=== PATIENT | male | born 1985 | race Caucasian/White ===

== ENCOUNTER 2024-06-27 07:51 | Emergency (ER) | payer OTHER ==
[~2024-06-27] VITALS: Ht 177.8 cm; Wt 77.7 kg
[2024-06-27 07:59] VITALS: BP 135/73; PULSE 93; RESP 16; TEMP 98.5; O2SAT 98
--- NOTE | 2024-06-27 08:17 | NUR ---
38 MALE WITH C/O CONSTANT CHEST PAIN SINCE YESTERDAY. PT DESCRIBES CHEST PAIN "PRESURE LIKE PAIN ACROSS CHEST", PT STATES HE HAS A HX OF ANXIETY AND BIPOALR AND REPORTS FEELING PALPITATIONS YESTERDAY. PT ALOS REPORTS SOB. DENIES PALPITATIONS TODAY. DENIES NUMBNESS OR TINGLING, DENIES PAIN RADIATION. DENIES FEVER, N/V/D. DENIES TAKING ANYTHING FOR PAIN. PT ALERT AND ORINTED TO PERSPN, PLACE, TIME, AND SITUATION. NKA PMHX: BIPOLAR, ANXIETY
--- NOTE | 2024-06-27 08:21 | NUR ---
PT PLACE ON MONITOR, VS WNL. CALL LIGTH WITHIN REACH. BED POSITIONED AT LOWEST POSITION.
[2024-06-27] MEDS ORDERED: IBUP-2213 PO (08:27)
[2024-06-27 08:50] VITALS: BP 127/86; PULSE 80; RESP 18; TEMP 98.3; O2SAT 96
--- NOTE | 2024-06-27 08:51 | NUR ---
Patient discharged with v/s stable. Written and verbal after care instructions given and explained. Patient alert, oriented and verbalized understanding of instructions. Ambulatory with steady gait. All questions addressed prior to discharge. Patient advised to follow up with PMD. Rx of ibuprofen given. Patient educated on indication of medication including possible reaction and side effects. Opportunity to ask questions provided and answered.
== END 2024-06-27 08:51 | disposition home or self-care (01) ==
LOC: MED 07:51
DX: R07.89 Other chest pain (principal); R06.02 Shortness of breath; F17.200 Nicotine dependence, unspecified, uncomplicated
CPT/HCPCS: 93005; 99283